=== PATIENT | female | born 1985 ===

== ENCOUNTER 2022-08-12 07:06 | Day surgery (SDC) | payer OTHER ==
[~2022-08-12] VITALS: Ht 167.6 cm; Wt 81.6 kg
[~2022-08-12 07:06] MED LIST: CITALOPRAM HBR40 MG PO
[2022-08-12] MEDS ORDERED: MORGIDOX100 MG PO (16:51)
[2022-08-12] MEDS ORDERED: IBU800 MG PO (16:52)
== END 2022-08-12 20:32 | disposition home or self-care (01) ==
LOC: CIR.AMB 07:06
PROVIDERS: ATTEND Obstetrics & Gynecology
DX: N88.8 Other specified noninflammatory disorders of cervix uteri (principal); N84.0 Polyp of corpus uteri; N72 Inflammatory disease of cervix uteri; N87.9 Dysplasia of cervix uteri, unspecified; N92.0 Excessive and frequent menstruation with regular cycle; Z20.822 Contact with and (suspected) exposure to COVID-19; Z91.018 Allergy to other foods